=== PATIENT | male | born 1970 | race Asian ===

== ENCOUNTER → 2022-11-05 | Emergency (ER) | payer OTHER ==
[~2022-11-05] MED LIST: ACTOS15 MG PO; ATENOLOL25 MG PO; GEMFIBROZIL600 MG PO; JARDIANCE10 MG PO; METFORMIN HCL500 M2 PO; METOPROLOL SUCC50 MG PO; OMEPRAZOLE20 MG PO; TRULICITY0.75 MG/0. SUB-Q; ZESTRIL5 MG PO
[2022-11-05 07:15] VITALS: BP 138/74
--- NOTE | 2022-11-05 16:30 | EKG ---
[facility] [address] [place] [address] Signed Normal sinus rhythm Low voltage QRS Borderline ECG No previous ECGs available Confirmed by RYLEY DIALLO MD ([id number]) on 11/05/2022 4:30:12 PM Electronically Signed By: RYLEY DIALLO MD 11/05/22 1630 PATIENT NAME: EMILY ELLIS Electrocardiogram DATE OF : 70 PHYSICIAN: RYLEY DIALLO MD REPORT #: [id number] REPORT IS CONFIDENTIAL AND NOT TO BE RELEASED WITHOUT AUTHORIZATION
== END ==
LOC: ED 04:04
DX: R07.9 Chest pain, unspecified (principal); K21.9 Gastro-esophageal reflux disease without esophagitis; I10 Essential (primary) hypertension; E11.9 Type 2 diabetes mellitus without complications; Z88.8 Allergy status to other drugs, medicaments and biological substances; Z79.899 Other long term (current) drug therapy; Z79.84 Long term (current) use of oral hypoglycemic drugs
CPT/HCPCS: 36415; 71045; 80053; 81003; 83735; 83880; 84484; 85025; 85610; 93005; 93010; J1885; J7121